=== PATIENT | female | born 1965 | race Caucasian/White ===

== ENCOUNTER 2018-12-22 17:01 | Emergency (ER) | payer SELFPAY ==
--- NOTE | 2018-12-22 17:14 | ER Report ---
History and Physical Time Seen By MD: 17:14 Hx. of Stated Complaint: STATES VOMITTING BRIGHT RED BLOOD, DIARRHEA, ABD AND THROAT PAIN FOR FOUR DAYS. STATES IT HAS OCCURED BEFORE AND SHE "GOT AN IV AND WAS SENT HOME" HPI/ROS CHIEF COMPLAINT: Vomiting blood HISTORY OF PRESENT ILLNESS: 53-year-old female patient presents to emergency room with complaint of vomiting blood. Patient states that she has a four-day history of nausea and vomiting. She states she's not been able to eat or drink anything for the last 4 days. She states she is also had dark tarry bowel movements. She states that this started just out of the blue. She states that she's not been able to take any medications. She denies any fevers, chills. She states that she does not drink alcohol. REVIEW OF SYSTEMS: Respiratory: No cough, no dyspnea. Cardiovascular: No chest pain, no palpitations. Gastrointestinal: As noted above Musculoskeletal: No back pain. Allergies: Coded Allergies: codeine (Verified Allergy, Mild, 12/22/18) Home Meds Active Scripts Ondansetron 4 Mg Odt (ONDANSETRON 4 MG ODT) 4 Mg Tab.rapdis, 4 MG PO Q6H PRN for NAUSEA/VOMITING, #20 TAB Prov:TERRENCE FERNANDES [facility] 12/22/18 Sucralfate (CARAFATE) 1 Gm Tablet, 1 GM PO QID, #60 TAB Take before meals and at bedtime. Crush the tablet and mix with water before taking. Prov:TERRENCE FERNANDES [facility] 12/22/18 Omeprazole (OMEPRAZOLE) 40 Mg Capsule.dr, 40 MG PO QDAY, #30 CAP Prov:TERRENCE FERNANDES [employer] 12/22/18 Past Medical/Surgical History Patient has a past medical history of congestive heart failure, vomiting blood. Patient has surgical history of cholecystectomy. Reviewed Nurses Notes: Yes Constitutional Vital Sign - Last 24 Hours 12/22/18 12/22/18 12/22/18 12/22/18 17:04 17:30 18:00 18:02 Temp 98.8 Pulse 142 115 111 Resp 20 12 22 B/P (MAP) 143/122 98/76 (83) 118/96 (103) Pulse Ox 92 98 95 O2 Flow Rate 3.0 12/22/18 12/22/18 12/22/18 12/22/18 18:30 18:35 18:40 18:45 Pulse 121 133 117 117 Resp 12 7 10 0 B/P (MAP) 119/102 (108) Pulse Ox 99 99 98 98 12/22/18 12/22/18 12/22/18 12/22/18 18:50 19:00 19:20 19:30 Pulse 108 115 Resp 18 14 B/P (MAP) 161/98 (119) 137/96 (110) Pulse Ox 99 96 12/22/18 12/22/18 12/22/18 12/22/18 19:50 20:00 20:20 20:30 Pulse 106 108 117 Resp 10 17 9 B/P (MAP) 129/91 (104) 149/128 (135) Pulse Ox 97 97 96 12/22/18 12/22/18 12/22/18 12/22/18 20:30 21:00 21:05 21:10 Pulse 117 116 119 Resp 12 28 15 B/P (MAP) 149/128 (135) 139/106 (117) Pulse Ox 90 97 98 12/22/18 21:15 Pulse ??? Resp 14 Pulse Ox 97 Physical Exam General Appearance: The patient is alert, has no immediate need for airway protection and no current signs of toxicity. Respiratory: Chest is non tender, lungs are clear to auscultation. Cardiac: regular rate and rhythm Gastrointestinal: Abdomen is soft and non tender, no masses, bowel sounds normal. Musculoskeletal: Neck: Neck is supple and non tender. Extremities have full range of motion and are non tender. Skin: No rashes or lesions. DIFFERENTIAL DIAGNOSIS: After history and physical exam differential diagnosis was considered for nausea and vomiting including but not limited to gastroenteritis, gastritis, appendicitis, and medication side effect. Medical Decision Making Data Points Result Diagram: 12/22/18 1716 12/22/18 1716 Laboratory Hematology Test 12/22/18 00:00 12/22/18 17:16 12/22/18 18:07 Serum Alcohol < 10 mg/dl Red Blood Count 5.05 M/uL (4.17-5.56) Mean Corpuscular Volume 96.6 fL (80.0-96.0) Mean Corpuscular Hemoglobin 33.0 pg (26.0-33.0) Mean Corpuscular Hemoglobin Concent 34.2 g/dL (32.0-36.0) Red Cell Distribution Width 13.9 % (11.5-14.5) Mean Platelet Volume 8.8 fL (7.2-11.1) Neutrophils (%) (Auto) 73.3 % (39.4-72.5) Lymphocytes (%) (Auto) 18.1 % (17.6-49.6) Monocytes (%) (Auto) 8.1 % (4.1-12.4) Eosinophils (%) (Auto) 0.0 % (0.4-6.7) Basophils (%) (Auto) 0.5 % (0.3-1.4) Nucleated RBC Relative Count (auto) 0.0 /100WBC Neutrophils # (Auto) 7.7 K/uL (2.0-7.4) Lymphocytes # (Auto) 1.9 K/uL (1.3-3.6) Monocytes # (Auto) 0.8 K/uL (0.3-1.0) Eosinophils # (Auto) 0.0 K/uL (0.0-0.5) Basophils # (Auto) 0.1 K/uL (0.0-0.1) Nucleated RBC Absolute Count (auto) 0.01 K/uL Erythrocyte Sedimentation Rate 6 mm/HOUR (0-30) Sodium Level 132 mmol/L (137-145) Potassium Level 2.7 mmol/L (3.5-5.0) Chloride Level 88 mmol/L (98-107) Carbon Dioxide Level 33 mmol/L (22-31) Blood Urea Nitrogen 23 mg/dl (7-18) Creatinine 0.80 mg/dl (0.52-1.04) Glomerular Filtration Rate Calc > 60.0 Random Glucose 140 mg/dl (75-110) Calcium Level 9.8 mg/dl (8.4-10.2) Total Bilirubin 2.2 mg/dl (0.2-1.3) Aspartate Amino Transf (AST/SGOT) 132 U/L (0-35) Alanine Aminotransferase (ALT/SGPT) 94 U/L (0-56) Alkaline Phosphatase 104 U/L (0-126) Total Protein 7.6 g/dl (6.3-8.2) Albumin 4.3 g/dl (3.5-5.0) Amylase Level 78 U/L (0-110) Lipase 34 U/L (23-300) Helicobacter pylori IgG Antibody Negative (NEGATIVE) Stool Occult Blood (IFOB) Negative (NEGATIVE) Chemistry Test 12/22/18 00:00 12/22/18 17:16 12/22/18 18:07 Serum Alcohol < 10 mg/dl White Blood Count 10.5 k/uL (4.5-11.0) Red Blood Count 5.05 M/uL (4.17-5.56) Hemoglobin 16.7 g/dL (12.0-16.0) Hematocrit 48.8 % (34.0-47.0) Mean Corpuscular Volume 96.6 fL (80.0-96.0) Mean Corpuscular Hemoglobin 33.0 pg (26.0-33.0) Mean Corpuscular Hemoglobin Concent 34.2 g/dL (32.0-36.0) Red Cell Distribution Width 13.9 % (11.5-14.5) Platelet Count 280 K/uL (150-450) Mean Platelet Volume 8.8 fL (7.2-11.1) Neutrophils (%) (Auto) 73.3 % (39.4-72.5) Lymphocytes (%) (Auto) 18.1 % (17.6-49.6) Monocytes (%) (Auto) 8.1 % (4.1-12.4) Eosinophils (%) (Auto) 0.0 % (0.4-6.7) Basophils (%) (Auto) 0.5 % (0.3-1.4) Nucleated RBC Relative Count (auto) 0.0 /100WBC Neutrophils # (Auto) 7.7 K/uL (2.0-7.4) Lymphocytes # (Auto) 1.9 K/uL (1.3-3.6) Monocytes # (Auto) 0.8 K/uL (0.3-1.0) Eosinophils # (Auto) 0.0 K/uL (0.0-0.5) Basophils # (Auto) 0.1 K/uL (0.0-0.1) Nucleated RBC Absolute Count (auto) 0.01 K/uL Erythrocyte Sedimentation Rate 6 mm/HOUR (0-30) Glomerular Filtration Rate Calc > 60.0 Calcium Level 9.8 mg/dl (8.4-10.2) Total Bilirubin 2.2 mg/dl (0.2-1.3) Aspartate Amino Transf (AST/SGOT) 132 U/L (0-35) Alanine Aminotransferase (ALT/SGPT) 94 U/L (0-56) Alkaline Phosphatase 104 U/L (0-126) Total Protein 7.6 g/dl (6.3-8.2) Albumin 4.3 g/dl (3.5-5.0) Amylase Level 78 U/L (0-110) Lipase 34 U/L (23-300) Helicobacter pylori IgG Antibody Negative (NEGATIVE) Stool Occult Blood (IFOB) Negative (NEGATIVE) Toxicology Test 12/22/18 00:00 Serum Alcohol < 10 mg/dl EKG/Imaging Imaging CT ABDOMEN PELVIS W/ CON Additional pertinent History: Nausea vomiting. Epigastric pain. TECHNIQUE: Spiral scan was through the abdomen and pelvis during injection of nonionic iodinated intravenous contrast. Contrast: 35 mL of IV Isovue-370. One of the following dose optimization techniques was utilized in the performance of this exam: Automated exposure control; adjustment of the mA and/or kV according to the patient's size; or use of an iterative reconstruction technique. Specific details can be referenced in the facility's radiology CT exam operational policy. COMPARISON STUDIES: none. FINDINGS: Liver / biliary: Generalized fatty infiltrative changes throughout the liver. Status post cholecystectomy. Pancreas: negative Spleen: negative Adrenal glands: negative Kidneys / retroperitoneum: Normal left ribs bilaterally. No renal stones or renal obstructive uropathy change Pelvic structures: Uterus and adnexal regions are unremarkable. Bowel / peritoneum / mesenteries: No colonic mass lesion. No bowel inflammation. Small hiatal hernia. No obvious evidence of a gastritis, antritis or duodenitis. Vessels: negative Musculoskeletal / Body wall: negative Lymph node assessment: negative Lower chest: negative IMPRESSION: 1. Negative CT scan of the abdomen/pelvis for acute pathology. 2. Fatty infiltrative changes within the liver. 3. Small hiatal hernia. Report Dictated By: Nick Esparza MD at 12/22/2018 6:47 PM Report E-Signed By: Nick Esparza MD at 12/22/2018 6:56 PM ED Course/Re-evaluation ED Course Patient is admitted and examined, history of physical were obtained. Differential diagnoses were considered. On examination lungs are clear, heart is regular, abdomen soft and non-tender. An IV was started, CBC, CMP, CT scan of abdomen and pelvis, urinalysis were done. We also did an occult stool as well as H. pylori. Both of those were negative. Patient had a normal H&H. CT scan of abdomen and pelvis showed no acute findings. Patient did have some elevated liver enzymes. I discussed the findings with patient. Patient states she is still very nauseated. Patient had improved nausea secondary to the Zofran. She did have one episode of emesis here in the emergency room, which appeared to have coffee grounds in it and some red tinged blood. Patient is complaining of sore throat and was given Magic mouthwash. She had improvement and was able to keep fluids down. As a result of that we will go ahead and discharge her home at this time. I would like her to follow-up with Dr. Adan, general surgeon, for upper endoscopy. We will go ahead and treat her with omeprazole, Carafate, Zofran. Patient verbalized understanding and agreement with plan. Decision to Disposition Date: December 22, 2018 Decision to Disposition Time: 20:58 Depart Departure Latest Vital Signs Vital Signs Date Time Temp Pulse Resp B/P (MAP) Pulse Ox O2 Delivery O2 Flow Rate FiO2 12/22/18 21:15 ??? 14 97 12/22/18 21:00 139/106 (117) 12/22/18 18:02 3.0 12/22/18 17:04 98.8 Impression: Primary Impression: Upper GI bleed Condition: Improved Disposition: HOME OR SELF-CARE Referrals: LIZZIE ADAN New Scripts Ondansetron 4 Mg Odt (ONDANSETRON 4 MG ODT) 4 Mg Tab.rapdis 4 MG PO Q6H PRN for NAUSEA/VOMITING, #20 TAB Prov: TERRENCE FERNANDES 12/22/18 Sucralfate (CARAFATE) 1 Gm Tablet 1 GM PO QID, #60 TAB Take before meals and at bedtime. Crush the tablet and mix with water before taking. Prov: TERRENCE FERNANDES 12/22/18 Omeprazole (OMEPRAZOLE) 40 Mg Capsule. 40 MG PO QDAY, #30 CAP Prov: TERRENCE FERNANDES 12/22/18 Patient Instructions: Gastrointestinal Bleeding (ED) Additional Instructions: Increase fluid intake. Eat foods that are gentle on your stomach. Follow up with surgery, Dr. Adan, for a scope. Avoid foods that upset your stomach. Return to the ER if condition worsens. Get plenty of rest. TERRENCE FERNANDES December 22, 2018 17:14
[2018-12-22] MEDS ORDERED: NS(*) 0.9% 1000 ML BAG 1,000 ML IV ONE ×3 (17:20→19:25)
[2018-12-22] MEDS ORDERED: ONDANSETRON 4 MG/2 ML VIAL IVP ONE (17:20)
[2018-12-22 17:34] LABS: PLATELET COUNT, AUTOMATED 280 K/uL (150-450)
[2018-12-22] MEDS ORDERED: IOPAMIDOL 76% 100 ML INFUS BTL 100 ML ONE (17:44)
[2018-12-22] MEDS ORDERED: KCL (*) 20 MEQ/100 ML PREMIX 100 ML IV ONE (17:45)
[2018-12-22] MEDS ORDERED: PANTOPRAZOLE SOD(*)40 MG VIAL 80 MG in NS(*) 0.9% 100 ML BAG 100 ML IVPB ONE (18:35)
--- NOTE | 2018-12-22 19:00 | RADIOLOGY IMAGING REPORT ---
FACILITY: [facility] [place] PATIENT NAME: Vale Guadarrama : 1965 MR: [id number] V: [id number] EXAM DATE: ORDERING PHYSICIAN: TERRENCE FERNANDES TECHNOLOGIST: Location: [facility] Patient: Vale Guadarrama : 1965 Visit/Account:[id number] Date of Sevice: 12/22/2018 CT ABDOMEN PELVIS W/ CON Additional pertinent History: Nausea vomiting. Epigastric pain. TECHNIQUE: Spiral scan was through the abdomen and pelvis during injection of nonionic iodinated in travenous contrast. Contrast: 35 mL of IV Isovue-370. One of the following dose optimization techniques was utilized in the performance of this exam: Autom ated exposure control; adjustment of the mA and/or kV according to the patient's size; or use of an i terative reconstruction technique. Specific details can be referenced in the facility's radiology C T exam operational policy. COMPARISON STUDIES: none. FINDINGS: Liver / biliary: Generalized fatty infiltrative changes throughout the liver. Status post cholecystec jarvis. Pancreas: negative Spleen: negative Adrenal glands: negative Kidneys / retroperitoneum: Normal left ribs bilaterally. No renal stones or renal obstructive uropath y change Pelvic structures: Uterus and adnexal regions are unremarkable. Bowel / peritoneum / mesenteries: No colonic mass lesion. No bowel inflammation. Small hiatal hernia. No obvious evidence of a gastritis, antritis or duodenitis. Vessels: negative Musculoskeletal / Body wall: negative Lymph node assessment: negative Lower chest: negative IMPRESSION: 1. Negative CT scan of the abdomen/pelvis for acute pathology. 2. Fatty infiltrative changes within the liver. 3. Small hiatal hernia. Report Dictated By: Nick Esparza MD at 12/22/2018 6:47 PM Report E-Signed By: Nick Esparza MD at 12/22/2018 6:56 PM WSN:[id number]
[2018-12-22] MEDS ORDERED: LIDOCAINE 2% VISC SLN 15ML UDC MM ONE (19:50)
[2018-12-22] MEDS ORDERED: MAG HYD/AL HYD/SIMETH 30ML UDC MM ONE (19:50)
[2018-12-22] MEDS ORDERED: SUCR1TAB85 PO (20:59)
[2018-12-22] MEDS ORDERED: ONDA4TAB9 PO (20:59)
[2018-12-22] MEDS ORDERED: OMEP40CA48 PO (20:59)
[2018-12-22 21:00] VITALS: BP 139/106
[2018-12-22] MEDS ORDERED: ONDANSETRON 4 MG ODT TH SL ONE (21:00)
--- NOTE | 2018-12-23 07:45 | EKG ---
FACILITY: [facility] - [place] PATIENT NAME: WILBERT CHERRY : [id number] MR: [id number] V: [id number] EXAM DATE: ORDERING PHYSICIAN: KULDEEP MONSALVE TECHNOLOGIST: RAKESH Test Reason : VOMITING Blood Pressure : / mmHG Vent. Rate : 114 BPM Atrial Rate : 120 BPM P-R Int : 148 ms QRS Dur : 076 ms QT Int : 348 ms P-R-T Axes : 057 012 068 degrees QTc Int : 479 ms Sinus tachycardia with PAC's Anterior infarct , age undetermined No ST-T abnormalities No previous ECGs available Confirmed by PRINCESS DURAN ([id number]) on 12/23/2018 2:00:14 PM Referred By: BELLO Confirmed By:PRINCESS DURAN
[2018-12-24] MEDS ORDERED: PANT40TA65 PO (16:28)
[2018-12-25] MEDS ORDERED: LISI5TAB25 PO (14:42)
== END 2018-12-22 21:17 | disposition home or self-care (01) ==
LOC: ER 17:04
DX: K92.2 Gastrointestinal hemorrhage, unspecified (principal); R10.13 Epigastric pain; R11.0 Nausea
CPT/HCPCS: 74177; 80320; 82150; 82274; 83690; 85025; 85651; 86677; 93005; 96361; 96365; 96366; 96375; 99284; C9113; J2405; J3480; J7030; J7050; Q9967; S0119; 82040; 82247; 82310; 82374; 82435; 82565; 82947; 84075; 84132; 84155; 84295; 84450; 84460; 84520

== ENCOUNTER 2018-12-26 00:05 | Day surgery (SDC) | payer SELFPAY ==
[~2018-12-26] VITALS: Ht 167.6 cm; Wt 66.7 kg
[~2018-12-26 00:05] MED LIST: LISI5TAB25 PO; OMEP40CA48 PO; ONDA4TAB9 PO; PANT40TA65 PO; SUCR1TAB85 PO
[2018-12-26] MEDS ORDERED: LIDOCAINE/SOD BICARB 8.4% SYR ID ONE (05:30)
[2018-12-26] MEDS ORDERED: NORMOSOL R SOLN(*) 1000 ML BAG 1,000 ML IV PRN (05:30)
[2018-12-26 05:56] VITALS: BP 127/98
[2018-12-26] MEDS ORDERED: PROPOFOL EMUL(*) 10MG/ML 20 ML 40 ML ONE (06:24)
[2018-12-26 06:37] LABS: PLATELET COUNT, AUTOMATED 192 K/uL (150-450)
[2018-12-26] MEDS ORDERED: KCL 2 MEQ/ML 20 MEQ/10 ML VIAL ONE (06:58)
[2018-12-26 11:13] VITALS: BP 89/61
[2018-12-26] MEDS ORDERED: PANT40TA65 PO (11:17)
--- NOTE | 2018-12-26 11:19 | Short(Outpt) Discharge Summary ---
Discharge Summary Reason for Hosp/Final Diag: (1) Upper GI bleed Status: Acute Hospital Course & Plan: pt presented for egd. she tolerated the procedure well. she will be discharged home when criteria met. Departure Discharge to: Home Discharge Instructions Home Meds Active Scripts Pantoprazole Sodium (PANTOPRAZOLE SODIUM) 40 Mg Tablet.dr, 1 TAB PO BID, #60 CAP 1 Refill Prov:LIZZIE ADAN 12/26/18 Ondansetron 4 Mg Odt (ONDANSETRON 4 MG ODT) 4 Mg Tab.rapdis, 4 MG PO Q6H PRN for NAUSEA/VOMITING, #20 TAB Prov:TERRENCE FERNANDES 12/22/18 Sucralfate (CARAFATE) 1 Gm Tablet, 1 GM PO QID, #60 TAB Take before meals and at bedtime. Crush the tablet and mix with water before taking. Prov:TERRENCE FERNANDES 12/22/18 Reported Medications Lisinopril (LISINOPRIL) 5 Mg Tablet, 5 MG PO PRN, TAB 12/25/18 Discontinued Scripts Pantoprazole Sodium (PANTOPRAZOLE SODIUM) 40 Mg Tablet., 40 MG PO BID, #30 TAB.SR Prov:LIZZIE ADAN 12/24/18 Omeprazole (OMEPRAZOLE) 40 Mg Capsule.dr, 40 MG PO QDAY, #30 CAP Prov:TERRENCE FERNANDES 12/22/18 Diet: Regular Activity: As Tolerated Special Instructions: we will call you in 10 days with biopsy results. LIZZIE ADAN December 26, 2018 11:19
[2018-12-26] MEDS ORDERED: POTA20PA25 PO (11:21)
[2018-12-26 11:43] VITALS: BP 92/62
[2018-12-26 12:24] VITALS: BP 109/82
[2019-01-08] MEDS ORDERED: PANT40TA65 PO (13:15)
== END 2018-12-26 12:48 | disposition home or self-care (01) ==
LOC: OR 00:05
PROVIDERS: ATTEND Surgery
DX: K20.9 Esophagitis, unspecified (principal); K44.9 Diaphragmatic hernia without obstruction or gangrene; K29.80 Duodenitis without bleeding; I11.0 Hypertensive heart disease with heart failure; I50.9 Heart failure, unspecified; F17.210 Nicotine dependence, cigarettes, uncomplicated; Z79.899 Other long term (current) drug therapy
CPT/HCPCS: 43239; 85025; 87077; 88305; 88313; 88342; J2704; J3480; 82040; 82247; 82310; 82374; 82435; 82565; 82947; 84075; 84132; 84155; 84295; 84450; 84460; 84520